=== PATIENT | female | born 1980 | race Caucasian/White ===

== ENCOUNTER 2017-02-18 15:00 | Emergency (ER) | payer OTHER ==
[~2017-02-18] VITALS: Ht 165.1 cm; Wt 76.3 kg
[~2017-02-18 15:00] MED LIST: HYDR-3240 PO; IBUP200C6 PO; PROM12.55 PO; SUMA100T3 PO
[2017-02-18 15:58] LABS: HEMATOCRIT 46.1 % (34.6-47.8); HEMOGLOBIN 15.6 g/dL (11.7-16.4); WHITE BLOOD COUNT 10.3 x10^3/uL (3.4-10)
[2017-02-18] MEDS ORDERED: DIPHENHYDRAMINE 50 MG/ML, 1ML IVPush ONE (16:00)
[2017-02-18] MEDS ORDERED: SODIUM CHLORIDE FLUSH 10ML SYR IVF ONE ×2 (16:00)
[2017-02-18] MEDS ORDERED: KETOROLAC 30 MG/1 ML IVPush ONE (16:00)
[2017-02-18] MEDS ORDERED: METOCLOPRAMIDE 5 MG/ML, 2ML IVPush ONE (16:00)
[2017-02-18] MEDS ORDERED: LIDOCAINE 2%, 2ML INFIL ONE (16:00)
[2017-02-18] MEDS ORDERED: SODIUM CHLORIDE 0.9% 1,000ML IVBOLUS ONE ×2 (16:00)
[2017-02-18] MEDS ORDERED: METOCLOPRAMIDE 5 MG/ML, 2ML ONE (16:25)
[2017-02-18] MEDS ORDERED: DIPHENHYDRAMINE 50 MG/ML, 1ML ONE (16:25)
[2017-02-18] MEDS ORDERED: KETOROLAC 30 MG/1 ML ONE (16:25)
[2017-02-18 16:50] LABS: BLOOD UREA NITROGEN 11 mg/dL (7-18)
[2017-02-18] MEDS ORDERED: GADOBUTROL 10 MMOL/10 ML VIAL ONE (17:54)
[2017-02-18] MEDS ORDERED: ONDANSETRON 2MG/ML, 2ML ONE ×2 (18:15→20:53)
[2017-02-18] MEDS ORDERED: DIHYDROERGOTAMINE 1 MG/ML, 1ML IM ONE (21:00)
[2017-02-18] MEDS ORDERED: ONDANSETRON 2MG/ML, 2ML IVPush ONE (21:00)
[2017-02-18 22:05] VITALS: BP 112/47
== END 2017-02-18 22:34 | disposition home or self-care (01) ==
LOC: ED 17:17
DX: G43.901 Migraine, unspecified, not intractable, with status migrainosus (principal)
CPT/HCPCS: 36415; 70546; 80048; 84703; 85025; 96361; 96372; 96374; 96375; 99285; A9585; J1110; J1200; J1885; J2405; J2765; J7030